=== PATIENT | male | born 1995 | race Caucasian/White ===

== ENCOUNTER 2017-08-08 11:50 | Emergency (ER) | payer BC, OTHER ==
[~2017-08-08] VITALS: Ht 177.8 cm; Wt 75.0 kg
[2017-08-08] MEDS ORDERED: ULTRAM50 M1 PO (12:31)
[2017-08-08 12:55] VITALS: BP 120/70
== END 2017-08-08 12:55 | disposition home or self-care (01) | DRG 563 ==
LOC: ED 11:50
PROC: 2W3KX1Z Immobilization of Left Finger using Splint (ICD-10-PCS; principal; 2017-08-08)
DX: S62.244A Nondisplaced fracture of shaft of first metacarpal bone, right hand, initial encounter for closed fracture (principal); W17.89XA Other fall from one level to another, initial encounter; Y93.89 Activity, other specified; Y92.89 Other specified places as the place of occurrence of the external cause